=== PATIENT | female | born 1985 | race Two or more races ===

== ENCOUNTER 2018-02-23 10:57 | Outpatient (CLI) | payer OTHER | END 2018-02-23 11:02 | disposition home or self-care (01) | LOC: RAD 10:57 | DX: M99.03 Segmental and somatic dysfunction of lumbar region (principal) ==

== ENCOUNTER 2018-12-12 09:38 | Emergency (ER) | payer OTHER ==
[~2018-12-12] VITALS: Ht 157.5 cm; Wt 59.0 kg
== END 2018-12-12 13:09 | disposition home or self-care (01) ==
LOC: ER 09:38
DX: M25.562 Pain in left knee (principal); M25.561 Pain in right knee